=== PATIENT | female | born 1995 ===

== ENCOUNTER 2017-06-02 22:06 | Emergency (ER) | payer SELFPAY ==
--- NOTE | 2017-06-02 22:14 | ER Report ---
History and Physical Time Seen By MD: 22:13 HPI/ROS CHIEF COMPLAINT: URI for 4 days of severe cough HISTORY OF PRESENT ILLNESS: 21-year-old female at 22 weeks presents with URI 5 for 4 days. The cough began increasingly worse. She's had purulent sinus drainage. Patient denies fever or chills. Patient denies nausea or vomiting. Patient's been unable to sleep due to severe cough. Patient has a mild history of asthma. She's had previous inhaler use. REVIEW OF SYSTEMS: Respiratory: As above Cardiovascular: No chest pain, no palpitations. Gastrointestinal: No vomiting, no abdominal pain. Musculoskeletal: No back pain. Allergies: Coded Allergies: Penicillins (Verified Allergy, Unknown, "high fever and bad rash", 06/02/17 ) Home Meds Active Scripts Oxycodone Hcl/Acetaminophen (PERCOCET 5-325 MG TABLET) 1 Each Tablet, 1 EACH PO Q4-6H Y for pain or cough suppression, #8 Prov:YOANNA MERLOS DO 06/02/17 Cefuroxime Axetil (CEFUROXIME) 500 Mg Tablet, 500 MG PO BID for infection, #14 TAB Prov:GAURANGYOANNA Spencer DO 06/02/17 Reviewed Nurses Notes: Yes Old Medical Records Reviewed: Yes Constitutional Vital Sign - Last 24 Hours 06/02/17 06/02/17 06/02/17 06/02/17 22:18 22:19 22:21 22:36 Temp 99.0 Pulse 89 91 87 Resp 18 B/P (MAP) 110/71 (84) 110/71 Pulse Ox 99 95 95 O2 Delivery Room Air 06/02/17 06/02/17 06/02/17 06/02/17 22:41 22:56 22:56 22:56 Pulse 88 87 81 Resp 12 Pulse Ox 94 95 98 O2 Delivery Room Air 06/02/17 06/02/17 06/02/17 22:57 22:57 23:11 Pulse 79 95 Pulse Ox 98 96 O2 Delivery Room Air Physical Exam General Appearance: The patient is alert, has no immediate need for airway protection and no current signs of toxicity. Vital signs stable, afebrile, pulse ox normal HEENT: Pupils equal and round no injection. TMs normal, oropharynx with redness or exudate Respiratory: Chest is non tender, lungs are clear to auscultation. Mild expiratory wheezing, no Rales Cardiac: regular rate and rhythm Gastrointestinal: Abdomen is soft and non tender, no masses, bowel sounds normal. Musculoskeletal: Neck: Neck is supple and non tender. Extremities have full range of motion and are non tender. Skin: No rashes or lesions. DIFFERENTIAL DIAGNOSIS: After history and physical exam differential diagnosis was considered for bronchitis, pneumonia, sinusitis, otitis media, pharyngitis, viral syndrome Medical Decision Making ED Course/Re-evaluation ED Course Patient was admitted to an examination room. H&P was done. The differential diagnoses was considered. On clinical examination. Patient has purulent postnasal drip. Patient be covered with Ceftin for infection. Patient was treated with an albuterol nebulizer. Patient was dispensed a pro-air inhaler. She'll be given a limited supply of oxycodone for temporary cough suppression. She is advised to use them sparingly with her . Patient advised to use Robitussin-DM. Patient advised to follow-up with primary care if unimproved in 3-5 days. Decision to Disposition Date: Jun 02, 2017 Decision to Disposition Time: 22:59 Depart Departure Latest Vital Signs Vital Signs Date Time Temp Pulse Resp B/P (MAP) Pulse Ox O2 Delivery O2 Flow Rate FiO2 06/02/17 23:11 95 96 06/02/17 22:57 Room Air 06/02/17 22:56 12 06/02/17 22:19 99.0 110/71 Impression: Primary Impression: Upper respiratory infection Additional Impressions: Sinusitis Persistent cough Condition: Improved Disposition: HOME OR SELF-CARE New Scripts Oxycodone Hcl/Acetaminophen (PERCOCET 5-325 MG TABLET) 1 Each Tablet 1 EACH PO Q4-6H Y for pain or cough suppression, #8 Prov: YOANNA MERLOS DO 06/02/17 Cefuroxime Axetil (CEFUROXIME) 500 Mg Tablet 500 MG PO BID for infection, #14 TAB Prov: YOANNA MERLOS DO 06/02/17 Patient Instructions: Sinusitis (ED), Upper Respiratory Infection (ED) Additional Instructions: You can use Robitussin-DM to suppress the cough You can take Tylenol for pain or fever reduction Follow-up with your primary care if unimproved in 3-5 days Problem Qualifiers Primary Impression: Upper respiratory infection URI type: unspecified URI Qualified Codes: J06.9 - Acute upper respiratory infection, unspecified Additional Impressions: Sinusitis Sinusitis location: unspecified location Chronicity: acute Recurrence: not specified as recurrent Qualified Codes: J01.90 - Acute sinusitis, unspecified YOANNA MERLOS DO Jun 02, 2017 22:14
[2017-06-02 22:19] VITALS: BP 110/71
[2017-06-02] MEDS ORDERED: ALBUTEROL 2.5 MG/3 ML NEB NEB ONE (22:50)
[2017-06-02] MEDS ORDERED: ALBUTEROL SULFATE 90 MCG/ACT 8.5 GM HNH INH PRN (22:50)
[2017-06-02] MEDS ORDERED: CEFUROXIME AXETIL 250 MG TAB PO ONE (23:00)
[2017-06-02] MEDS ORDERED: oxyCODONE/ACETAMIN 5/325MG TH 2 TAB/BOTTLE PO ONE (23:00)
[2017-06-02] MEDS ORDERED: OXYC-865 PO (23:01)
[2017-06-02] MEDS ORDERED: CEFU500T10 PO (23:01)
== END 2017-06-02 23:25 | disposition home or self-care (01) ==
LOC: EDSTATUS 22:08 → OB 22:10 → UNDOADMIN 22:10 → EDSTATUS 22:12 → ER 22:14
DX: O26.892 Other specified pregnancy related conditions, second trimester (principal); J06.9 Acute upper respiratory infection, unspecified; J01.90 Acute sinusitis, unspecified
CPT/HCPCS: 94640; 99283; J7613

== ENCOUNTER 2017-06-13 12:12 | Inpatient (IN) | payer SELFPAY ==
[~2017-06-13] VITALS: Ht 167.6 cm; Wt 83.5 kg
[~2017-06-13 12:12] MED LIST changes: -PREN-127 PO
[2017-06-13 12:30] VITALS: BP 105/60; Ht 167.6 cm; Wt 83.5 kg
[2017-06-13] MEDS ORDERED: ENOXAPARIN 100 MG/ML SYR SC SCH (12:55)
[2017-06-13] MEDS ORDERED: ACETAMINOPHEN 325 MG TAB PO PRN (12:55)
[2017-06-13] MEDS ORDERED: ONDANSETRON 4 MG/2 ML VIAL IV PRN (12:55)
[2017-06-13] MEDS ORDERED: SIMETHICONE 80 MG CHEW CHEW PRN (12:55)
[2017-06-13] MEDS ORDERED: PROMETHAZINE 25 MG/ML 1 ML AMP IVP PRN (12:55)
[2017-06-13] MEDS ORDERED: ZOLPIDEM TARTRATE 10 MG TAB PO PRN (12:55)
[2017-06-13 14:09] LABS: PLATELET COUNT, AUTOMATED 150 K/uL (150-450)
--- NOTE | 2017-06-13 18:09 | History & Physical ---
History of Present Illness Age of Patient: 21 : 4 Para or TPAL: 2011 EDC per LMP: Oct 07, 2017 EDC per U/S: Oct 08, 2017 Estimated Gestational Age: 23.5 Chief Complaint Pain in her left leg, swelling History of Present Illness Pt is a 21 y/o @ 23-5/7 weeks gestation who presented to clinic this morning with a chief complaint of a painful left leg that is starting to turn different colors. Reports that the leg feels like it goes numb sometimes. Reports symptoms started about two days ago. No chest pain or shortness of breath. Pt does report a history of a PE in 2013 with an unknown etiology. Pt does report that they thought it may be hormonal but they never said one way or another. She reports she was taking control at the time when she got the clot. Pt reports that she had taken control pills in the past prior to this episode in 2013. Pt had no issues in her prior . Also reports a history of her mother having a stroke from a dvt. History Patient's Blood Type: B Positive Rubella Status: Immune Group B Strep Screen: Negative Obstetrical History: . X 2 with one Spontaneous AB Past Medical History: History of a PD in 2013. Allergic PCN (rash) History of Pyelonephritis History of Depression was taking Lexapro but stopped Allergies: Coded Allergies: Penicillins (Verified Allergy, Unknown, "high fever and bad rash", 06/02/17 ) Social History: Denies use of Alcohol and recreational drugs. Occassional use of tobacco during this Med Rec Home Meds Active Scripts Oxycodone Hcl/Acetaminophen (PERCOCET 5-325 MG TABLET) 1 Each Tablet, 1 EACH PO Q4-6H Y for pain or cough suppression, #8 Prov:YOANNA MERLOS DO 06/02/17 Cefuroxime Axetil (CEFUROXIME) 500 Mg Tablet, 500 MG PO BID for infection, #14 TAB Prov:YOANNA MERLOS DO 06/02/17 Review of Systems All Systems Reviewed/Normal: Yes, Except as Noted Constitutional: No Fever, No Weight Loss, No Weight Gain, No Chills, No Night Sweats, No Other Neurological: No Syncope, No Confusion, No Weakness, No Dizziness, No Slurred Speech, No Other Eyes: No Vision Change, No Loss of Vision, No Photophobia, No Other ENT: No Hearing Loss, No Sinus Congestion, No Sore Throat, No Ear Ache, No Tinnitus, No Other Cardiovascular: No Chest Pain, No Palpitations, No Orthostatic Hypotension, No Other Respiratory: No Shortness of Breath, No Cough, No Wheezing, No Other Gastrointestinal: No Nausea, No Vomiting, No Diarrhea, No Dysphagia, No Constipation, No Early Satiety, No Hematemesis, No Hematochezia, No Melena, No Abdominal Pain, No Other Musculoskeletal: Other (Left lower extremity swollen as described in H&P.) Psychiatric: No Depression, No Anxiety, No Other Exam General Exam Vital Signs Vital Signs Date Time Temp Pulse Resp B/P (MAP) Pulse Ox O2 Delivery O2 Flow Rate FiO2 06/13/17 12:30 98.0 88 16 105/60 (75) 97 Room Air General Apperance: Alert/Awake/No Acute Distress Neuro: No Gross deficits Eyes: Normal Extraocular Movement & Vison, PERRLA ENT: Normal Cardiovascular: Regular Rate and Rhythm Respiratory: No Respiratory Distress, Clear to Auscultation Abdomen: Soft, Non-Tender, Non-Distended : Normal Musculoskeletal: No Weakness/Pain Extremities: No Cyanosis,Clubbing or Edema Integumentary: Skin Intact without Lesions or Rash Psychological: Alert & Oriented X3, Appropriate Mood & Affect Fetus Feeling Movement?: Yes Heart Tones: 150 Medical Decision Making Data Points Result Diagram: 06/13/17 1357 Imaging Ultrasound/Imaging Date of [facility]: 06/13/2017 Exam type: VENOUS DOPP LOW LEFT EXTREMITY History: Left leg pain and swelling Comparison: None. Findings: There is extensive thrombus identified in the left inferior vena cava, left iliac vein, left common femoral vein, left superficial femoral vein. The left popliteal vein posterior tibial vein peroneal vein and anterior tibial veins were compressible and demonstrated augmentation IMPRESSION: 1. Extensive DVT from the IVC through the distal left superficial femoral vein. Findings were discussed by telephone with Dr. Grullon at 11:55 AM on 06/13/2017 Pre-Admit Course Medical Record Review: Yes VTE Prophylasis: Adult Deep Vein Thrombosis/Pulmonary: No Mechanical Contraindications: Current DVT Assessment and Plan MACHINERY REPAIR MAINTENANCE SUPERVISOR Assessment: Stable Problems: (1) Deep vein thrombosis (DVT) affecting in second trimester Assessment & Plan: DVT in left lower extremity from the femoral all the way to the inferior vena cava. Discussed patient care with Dr. Jose Martin Toth of [facility] medical group in [place] whom recommended inpatient management. Weight based Lovenox therapy BID. 84 mg/BID. Inherited Thrombophilia workup started. Once patient is comfortable with giving herself injections and is stable on Lovenox will consider anti Xa levels and possible adjustment of dosage. Will have social worker assistant consult tomorrow to help with getting home Lovenox paid for. heart tones daily or more per patient request. Continuous pulse oximetry while in house. No scd's. If patient decompensates will need help from Hospitalist. Could consider discussing if Sky filter would be a viable option for this patient. (2) Deep vein thrombosis (DVT) of left lower extremity Problem Qualifiers (1) Deep vein thrombosis (DVT) of left lower extremity: Affected thrombotic vein of extremity: iliac JOSEPH GRULLON DO Jun 13, 2017 18:09
[2017-06-13 19:30] VITALS: BP 118/63
[2017-06-13] MEDS ORDERED: PREN-127 PO (19:40)
[2017-06-13] MEDS ORDERED: PROMETHAZINE HCL 25 MG TAB PO PRN (21:00)
[2017-06-13] MEDS: ONDANSETRON 4 MG ODT TABDP SL PRN (21:18)
[2017-06-13] MEDS: FAMOTIDINE 20 MG TAB PO SCH (21:18)
[2017-06-13] MEDS: DOCUSATE CALCIUM 240 MG CAP PO SCH (21:18)
[2017-06-13] MEDS ORDERED: ENOXAPARIN 100 MG/ML SYR SC ONE (23:00)
[2017-06-13 23:01] VITALS: BP 112/60
[2017-06-14 04:43] VITALS: BP 97/61
[2017-06-14] MEDS: ONDANSETRON 4 MG ODT TABDP SL PRN ×3 (06:03→19:44)
--- NOTE | 2017-06-14 07:40 | OB/GYN Progress Note ---
OB Subjective Progress Notes Subjective No SOB, no chest pain, pain in left side today, leg less painful today GI: NEG Nausea, NEG Vomiting : Voiding Well Pain: Mild Neurological: No Headache OB Objective Physical Exam Vital Signs Date Time Temp Pulse Resp B/P (MAP) Pulse Ox O2 Delivery O2 Flow Rate FiO2 06/14/17 04:43 98.2 79 12 97/61 (73) 95 Room Air General Appearance: Alert/Awake/No Acute Distress Neurological: No Gross deficits Eyes: Normal Extraocular Movement & Vison, PERRLA Cardiovascular: Regular Rate and Rhythm Respiratory: No Respiratory Distress, Clear to Auscultation Abdomen: Soft, Non-Tender, Non-Distended Extremities: No Cyanosis,Clubbing or Edema Integumentary: Skin Intact without Lesions or Rash Psychological: Alert & Oriented X3, Appropriate Mood & Affect Result Diagram: 06/13/17 4357 Assessment and Plan Problems: (1) Deep vein thrombosis (DVT) affecting in second trimester Assessment & Plan: patient on levenox, pain in left side will consult hospitalist to follow along (2) Deep vein thrombosis (DVT) of left lower extremity Problem Qualifiers (1) Deep vein thrombosis (DVT) of left lower extremity: Affected thrombotic vein of extremity: iliac LILLY LEWIS MD Jun 14, 2017 07:40
[2017-06-14 09:00] VITALS: BP 94/56
[2017-06-14] MEDS ORDERED: INFLUENZA VIRUS VAC 0.5 ML SYR IM ONLY ONE (09:00)
[2017-06-14] MEDS: DOCUSATE CALCIUM 240 MG CAP PO SCH ×2 (09:03→21:44)
[2017-06-14] MEDS: FAMOTIDINE 20 MG TAB PO SCH ×2 (09:03→21:44)
[2017-06-14] MEDS: ENOXAPARIN 100 MG/ML SYR SC SCH ×2 (09:04→21:44)
[2017-06-14 13:22] VITALS: BP 116/48
--- NOTE | 2017-06-14 15:29 | Hospitalist Consultation ---
History of Present Illness Requesting Physician Wilver Reason for Consult DVT involving the IVC. History of Present Illness 21yo female with a h/o PE who is 23 weeks who was admitted for a DVT. She developed left groin pain 3 days prior to admission. The pain worsened and she developed some leg numbness. She was found to have a DVT extending from the IVC down to the superficial femoral vein on the left. Today, she reported some bilateral flank discomfort. She had a PE on the right in August of 2013. She was on control at the time. She was placed on warfarin until a previous . She hasn't had any more clotting issues. Her mother had a DVT recently and potentially a stroke related to it. The patient denies tobacco use. Currently, she is comfortable when her leg is up, but has pain and a purplish leg when she stands up. She is limited for how long she can stand secondary to the leg discomfort. No cp/sob. History Problems: (1) History of pulmonary embolism Status: Acute (2) History of tonsillectomy Home Meds Active Scripts Oxycodone Hcl/Acetaminophen (PERCOCET 5-325 MG TABLET) 1 Each Tablet, 1 EACH PO Q4-6H Y for pain or cough suppression, #8 Prov:YOANNA MERLOS DO 06/02/17 Reported Medications Vits W-Ca,Fe,Fa(<1MG) ( VITAMINS) 1 Each Tablet, 1 EACH PO DAILY, TAB 06/13/17 Discontinued Scripts Cefuroxime Axetil (CEFUROXIME) 500 Mg Tablet, 500 MG PO BID for infection, #14 TAB Prov:YOANNA MERLOS DO 06/02/17 Allergies: Coded Allergies: Penicillins (Verified Allergy, Unknown, "high fever and bad rash", 06/02/17 ) latex (Unverified Allergy, Unknown, 06/13/17) Other Social/Family Hx She denied tobacco use to me. Hx Smoking: Yes Smoking Status: Current: Every Day Smoker, Light Tobacco Smoker Hx Alcohol Use: No Review of Systems All Systems Reviewed/Normal: Yes, Except as Noted Exam Vital Signs Vital Signs Date Time Temp Pulse Resp B/P (MAP) Pulse Ox O2 Delivery O2 Flow Rate FiO2 06/14/17 13:22 98.3 94 18 116/48 (70) 92 Room Air General Appearance: Alert, Awake, No Acute Distress Cardiovascular: Regular Rate and Rhythm Respiratory: Clear to Auscultation GI: Abd Soft and Non-Tender : No CVA Tenderness Extremities: Edema (left leg is diffusely more swollen to the toes compared to the right, but mildly so. Normal color. No pain with palpation. Feet are warm. <2 sec cap refill bilaterally. Bounding DP pulses bilaterally.) Medical Decision Making Data Points Result Diagram: 06/13/17 1357 EKG / Imaging Imaging Venogram - 1. Extensive DVT from the IVC through the distal left superficial femoral vein. Assessment and Plan Problems: (1) History of pulmonary embolism Status: Acute Assessment & Plan: She presented with left groin and leg pain and was found to have an extensive DVT from the IVC to the superficial femoral vein. She was started on Lovenox. She has good perfusion and no signs of ischemia. She does get significant discomfort, purplish color and swelling when standing. I spoke with a Vascular Surgeon from [facility] and at [place] and they both did not recommend thrombectomy. She cannot have thrombolysis secondary to the . They agreed with Lovenox and recommended compression stocking therapy. The patient has a hypercoagulable work up pending. She will need to be on Lovenox while . I would recommend following up with a Bleacher Operator in a couple weeks to guide further therapy. BMP/CBC tomorrow. Copies to: LILLY LEWIS MD Venous Thromboembolism Antithrombotics Is Pt On Any Antithrombotics?: Yes JOSE J CEBALLOS MD Jun 14, 2017 15:29
[2017-06-14 20:39] VITALS: BP 95/51
[2017-06-14 22:15] LABS: PLATELET COUNT, AUTOMATED 155 K/uL (150-450)
--- NOTE | 2017-06-15 00:39 | RADIOLOGY IMAGING REPORT ---
FACILITY: [facility] - [place] PATIENT NAME: Jyotsna Mosqueda : 1995 MR: [id number] V: [id number] EXAM DATE: ORDERING PHYSICIAN: LILLY LEWIS TECHNOLOGIST: Location: [facility] Patient: Jyotsna Mosqueda : 1995 Visit/Account:[id number] Date of Sevice: 06/14/2017 KIDNEYS HISTORY: Right flank pain since this morning. 23-24 weeks . COMPARISON: None. FINDINGS: Kidneys Right: 11.5 x 5.4 x 6.7 cm. Normal parenchymal thickness and echogenicity. Trace hydronephrosis. No s hadowing calculus. No perinephric fluid collection. Resistive index is normal, measuring 0.6 cm. Left: 13.0 x 4.8 x 4.5 cm. Normal parenchymal thickness and echogenicity. No hydronephrosis or visibl e shadowing calculus. Resistive index is normal, measuring 0.7 cm. No perinephric fluid collection. Bladder: Normal. Both ureteral jets were identified. Bladder volume is 108 mL. Post void bladder volu me is 10 mL. Abdomina aorta and IVC: Patent by Doppler ultrasound. Additional findings: There is an intrauterine gestation in breech presentation. On image 44, there is a vessel at the internal cervical os. IMPRESSION: 1. Trace right hydronephrosis, likely due to the gravid uterus. No visible obstructing calculus. Both ureteral jets were identified. 2. Normal left kidney. 3. 10 mL postvoid bladder residual. 4. There is a vessel at the internal cervical os. Close attention to this is recommended on dedicated follow-up OB ultrasound to ensure no vasa previa. Report Dictated By: Cahro Deshpande at 06/15/2017 12:26 AM Report E-Signed By: Charo Deshpande at 06/15/2017 12:34 AM WSN:[id number]
[2017-06-15] MEDS: ONDANSETRON 4 MG ODT TABDP SL PRN ×5 (00:54→21:53)
[2017-06-15 01:01] VITALS: BP 96/51
[2017-06-15 05:53] VITALS: BP 91/53
--- NOTE | 2017-06-15 06:53 | Hospitalist Progress Note ---
Subjective Progress Notes Subjective The patient had worsening left groin pain and also left flank pain. Both are worse with movement. The flank pain seems to have improved significantly, but still having the groin pain. No reported cp/sob. Physical Exam Vital Signs Date Time Temp Pulse Resp B/P (MAP) Pulse Ox O2 Delivery O2 Flow Rate FiO2 06/15/17 05:53 98.3 72 16 91/53 (66) 94 Room Air General Appearance: Alert, Awake, No Acute Distress GI: Soft and Non-Tender : No CVA Tenderness Extremities: Warm, Perfused, Other (Left leg has the compression stocking on with minimal swelling compared to the right. It is non-tender. No pain with palpation of the groin on the left) Result Diagram: 06/14/171 Assessment and Plan Problems: (1) History of pulmonary embolism Status: Acute Assessment & Plan: She presented with left groin and leg pain and was found to have an extensive DVT from the IVC to the superficial femoral vein. She was started on Lovenox. She has good perfusion and no signs of ischemia. She does get significant discomfort, purplish color and swelling when standing. I spoke with a Vascular Surgeon from [facility] and at [place] and they both did not recommend thrombectomy. She cannot have thrombolysis secondary to the . They agreed with Lovenox and recommended compression stocking therapy. The patient has a hypercoagulable work up pending. She will need to be on Lovenox while . I would recommend following up with a Military Source Operations Officer in a couple weeks to guide further therapy. Overnight she developed some left flank pain, but also worsening groin pain. No WBC was wnl, and renal US was wnl. A repeat Doppler of the LLE including the IVC might be helpful to look for progression of the clot. BMP/CBC pending. JOSE J CEBALLOS MD Jun 15, 2017 06:53
[2017-06-15 07:15] VITALS: BP 95/56
--- NOTE | 2017-06-15 07:49 | OB/GYN Progress Note ---
OB Subjective Progress Notes Subjective no chest pain or shortness of breath. still with left groin pain, left flank pain better this am GI: POS Nausea, POS Flatus, NEG Vomiting : Voiding Well OB Objective Physical Exam Vital Signs Date Time Temp Pulse Resp B/P (MAP) Pulse Ox O2 Delivery O2 Flow Rate FiO2 06/15/17 05:53 98.3 72 16 91/53 (66) 94 Room Air General Appearance: Alert/Awake/No Acute Distress Neurological: No Gross deficits Eyes: Normal Extraocular Movement & Vison, PERRLA Cardiovascular: Regular Rate and Rhythm Respiratory: Clear to Auscultation Abdomen: Soft, Non-Tender, Non-Distended : No CVA Tenderness Extremities: No Cyanosis,Clubbing or Edema, No Edema Integumentary: Skin Intact without Lesions or Rash Psychological: Alert & Oriented X3, Appropriate Mood & Affect Result Diagram: 06/14/17 4500 Assessment and Plan Problems: (1) Deep vein thrombosis (DVT) affecting in second trimester (2) Deep vein thrombosis (DVT) of left lower extremity Assessment & Plan: will get doppler to see if clot extended. will continue lovenox as ordered Problem Qualifiers (1) Deep vein thrombosis (DVT) of left lower extremity: Affected thrombotic vein of extremity: iliac LILLY LEWIS MD Jun 15, 2017 07:49
[2017-06-15 07:55] LABS: PLATELET COUNT, AUTOMATED 158 K/uL (150-450)
[2017-06-15] MEDS: FAMOTIDINE 20 MG TAB PO SCH ×2 (09:36→20:20)
[2017-06-15] MEDS: DOCUSATE CALCIUM 240 MG CAP PO SCH ×2 (09:36→20:20)
[2017-06-15] MEDS: ENOXAPARIN 100 MG/ML SYR SC SCH ×2 (09:36→20:20)
--- NOTE | 2017-06-15 11:30 | RADIOLOGY IMAGING REPORT ---
[place] [facility] [place] NAME: Jyotsna Mosqueda : 1995 MR: [id number] V: [id number] EXAM DATE: ORDERING PHYSICIAN: LILLY LEWIS TECHNOLOGIST: Location: [facility] Patient: Jyotsna Mosqueda : 1995 Visit/Account:[id number] Date of Sevice: 06/15/2017 EXAMINATION: Left LOWER EXTREMITY VENOUS DOPPLER ULTRASOUND DATE: 06/15/2017 11:17 AM CLINICAL INFORMATION: US REASON FOR STUDY: worsening symptoms from dvt TECHNIQUE: Grayscale, color Doppler, and spectral Doppler ultrasound was performed of the lower extre mity veins to evaluate for deep venous thrombosis. COMPARISON: Left lower extremity ultrasound of June 13, 2017 FINDINGS: As on the comparison, thrombus is demonstrated within the distal IVC and this extends into the common femoral vein and femoral vein. There is some flow within the distal IVC. Thrombus is occlu sive in the common femoral vein and extends just distal to the greater saphenous vein confluence. The re is flow in the femoral vein distally as well as the popliteal vein. Posterior tibial and peroneal veins are patent. The distribution clot appears grossly similar to the prior study. The deep veins of the right lower extremity are patent including the common iliac vein. IMPRESSION: Persistent extensive thrombus from the distal IVC to the distal femoral vein on the left. The distrib ution clot appears grossly similar to the prior ultrasound of June 13, 2017. Report Dictated By: Whit Poe MD at 06/15/2017 11:17 AM Report E-Signed By: Whit Poe MD at 06/15/2017 11:25 AM WSN:[id number]
[2017-06-15 11:37] VITALS: BP 96/56
[2017-06-15 16:50] VITALS: BP 99/54
[2017-06-15 20:25] VITALS: BP 113/64
[2017-06-16 04:07] VITALS: BP 93/57
[2017-06-16] MEDS: ONDANSETRON 4 MG ODT TABDP SL PRN ×4 (05:56→20:47)
[2017-06-16] MEDS ORDERED: MAGNESIUM HYDROXIDE* 30ML UDCP PO PRN (08:20)
[2017-06-16 09:06] VITALS: BP 92/55
[2017-06-16] MEDS: ENOXAPARIN 100 MG/ML SYR SC SCH ×2 (09:12→20:48)
[2017-06-16] MEDS: FAMOTIDINE 20 MG TAB PO SCH ×2 (09:12→20:47)
[2017-06-16] MEDS: DOCUSATE CALCIUM 240 MG CAP PO SCH ×2 (09:12→20:47)
--- NOTE | 2017-06-16 10:04 | OB/GYN Progress Note ---
OB Subjective Progress Notes Subjective Pain controlled, no shortness of breath, no chest pain. GI: POS Flatus, NEG Nausea, NEG Vomiting : Voiding Well Pain: Mild OB Objective Physical Exam Vital Signs Date Time Temp Pulse Resp B/P (MAP) Pulse Ox O2 Delivery O2 Flow Rate FiO2 06/16/17 09:06 98.3 78 16 92/55 (67) 94 Room Air General Appearance: Alert/Awake/No Acute Distress Neurological: No Gross deficits Eyes: Normal Extraocular Movement & Vison, PERRLA Cardiovascular: Regular Rate and Rhythm Respiratory: Clear to Auscultation Abdomen: Soft, Non-Tender, Non-Distended : No CVA Tenderness Extremities: No Cyanosis,Clubbing or Edema, No Edema Integumentary: Skin Intact without Lesions or Rash Psychological: Alert & Oriented X3, Appropriate Mood & Affect Result Diagram: 06/15/17 0707 06/15/17 0707 Assessment and Plan Problems: (1) Deep vein thrombosis (DVT) affecting in second trimester (2) Deep vein thrombosis (DVT) of left lower extremity Assessment & Plan: Pain controlled, no shortness of breath, no chest pain. Will get heart tones q shift. Likely discharge in am after social work consult Problem Qualifiers (1) Deep vein thrombosis (DVT) of left lower extremity: Affected thrombotic vein of extremity: LILLY Sahu MD Jun 16, 2017 10:04
--- NOTE | 2017-06-16 11:02 | Hospitalist Progress Note ---
Subjective Progress Notes Subjective This patient was admitted for a DVT of the lower extremity. Physical Exam Vital Signs Date Time Temp Pulse Resp B/P (MAP) Pulse Ox O2 Delivery O2 Flow Rate FiO2 06/16/17 09:06 98.3 78 16 92/55 (67) 94 Room Air Cardiovascular: Regular Rate and Rhythm Respiratory: Clear to Auscultation Result Diagram: 06/15/17 0707 06/15/17 0707 Assessment and Plan Problems: (1) History of pulmonary embolism Status: Acute Assessment & Plan: She presented with left groin and leg pain and was found to have an extensive DVT from the IVC to the superficial femoral vein. She was started on Lovenox. She has good perfusion and no signs of ischemia. She does get significant discomfort, purplish color and swelling when standing. Dr. Casas did speak with a Vascular Surgeon from [facility] and at [facility] and they both did not recommend thrombectomy. She cannot have thrombolysis secondary to the . They agreed with Lovenox and recommended compression stocking therapy. The patient has a hypercoagulable work up pending. She will need to be on Lovenox while . We would recommend following up with a [employer] in a couple weeks to guide further therapy. LILLY HARDY DO Jun 16, 2017 11:02
[2017-06-16 12:18] VITALS: BP 93/53
[2017-06-16 16:13] VITALS: BP 101/59
[2017-06-16 19:41] VITALS: BP 98/55
[2017-06-17] MEDS ORDERED: ONDANSETRON 4 MG ODT TABDP SL SCH
[2017-06-17 03:10] VITALS: BP 98/55
[2017-06-17] MEDS: ONDANSETRON 4 MG ODT TABDP SL PRN ×2 (03:13→09:17)
[2017-06-17 09:01] VITALS: BP 93/53
[2017-06-17] MEDS: DOCUSATE CALCIUM 240 MG CAP PO SCH (09:06)
[2017-06-17] MEDS: FAMOTIDINE 20 MG TAB PO SCH (09:06)
[2017-06-17] MEDS: ENOXAPARIN 100 MG/ML SYR SC SCH (09:07)
[2017-06-17 13:00] VITALS: BP 97/61
[2017-06-17] MEDS ORDERED: ONDA4TAB9 SL (15:28)
[2017-06-17] MEDS ORDERED: ENOX100D5 SC (15:28)
[2017-06-17] MEDS ORDERED: PER PO (15:28)
--- NOTE | 2017-06-17 15:29 | OB/GYN Discharge Summary ---
Discharge Summary Reason for Hosp/Final Diag: (1) Deep vein thrombosis (DVT) affecting in second trimester (2) Deep vein thrombosis (DVT) of left lower extremity Hospital Course & Plan: Pain controlled, no shortness of breath, no chest pain. Will get heart tones q shift. Likely discharge in am after social work consult [place] Vital Signs Vital Signs Date Time Temp Pulse Resp B/P (MAP) Pulse Ox O2 Delivery O2 Flow Rate FiO2 06/17/17 13:00 98.3 66 16 97/61 (73) 93 Room Air Weight (Pounds): 184 Result Diagram: 06/15/1770606/15/17706 Condition: Improved Discharge: Home, Self Half-Way Meds Active Scripts Oxycodone/Acetaminophen (OXYCODONE/ACETAMINOPHEN 5MG/325 MG) 5 Mg/325 Mg Tab, 1- 2 TAB PO Q4H Y for PAIN, #14 TAB 0 Refills Prov:UVALDO DAMIAN MD 06/17/17 Oxycodone Hcl/Acetaminophen (PERCOCET 5-325 MG TABLET) 1 Each Tablet, 1 EACH PO Q4-6H Y for pain or cough suppression, #8 Prov:YOANNA MERLOS DO 06/02/17 Reported Medications Vits W-Ca,Fe,Fa(<1MG) ( VITAMINS) 1 Each Tablet, 1 EACH PO DAILY, TAB 06/13/17 Discontinued Scripts Cefuroxime Axetil (CEFUROXIME) 500 Mg Tablet, 500 MG PO BID for infection, #14 TAB Prov:YOANNA MERLOS DO 06/02/17 Follow up Referrals: [employer] [facility] - In One Week @ [facility] with Uvaldo Damian Md Follow up with: Dr. Damian [phone] Follow up in: 5-7 days Discharge Diet: As Tolerates Discharge Activity: As Tolerates, No Heavy Lifting x 6 wks, No Heavy Lifting > 10lb Special Instructions: Copies to: UVALDO DAMIAN MD Problem Qualifiers (1) Deep vein thrombosis (DVT) of left lower extremity: Affected thrombotic vein of extremity: iliac UVALDO DAMIAN MD Jun 17, 2017 15:29
[2017-06-17] MEDS ORDERED: ONDANSETRON 4 MG ODT TABDP SL PRN (16:20)
[2017-06-17] MEDS ORDERED: ENOXAPARIN 100 MG/ML SYR SC SCH ×2 (21:00)
== END 2017-06-17 17:00 | disposition home or self-care (01) | DRG 782 ==
LOC: OB 12:12 → OBSVTOIN 12:12
PROVIDERS: ADMIT Student in an Organized Health Care Education/Training Program; ATTEND Student in an Organized Health Care Education/Training Program
DX: O22.32 Deep phlebothrombosis in pregnancy, second trimester (principal); I82.220 Acute embolism and thrombosis of inferior vena cava; I82.412 Acute embolism and thrombosis of left femoral vein; I82.492 Acute embolism and thrombosis of other specified deep vein of left lower extremity; Z3A.23 23 weeks gestation of pregnancy; Z88.0 Allergy status to penicillin; Z86.711 Personal history of pulmonary embolism; Z91.040 Latex allergy status
CPT/HCPCS: 36415; 76705; 81001; 81240; 81241; 82310; 82374; 82435; 82565; 82947; 84132; 84295; 84520; 85025; 85300; 85520; 85610; 85613; 85730; 86146; 86147; J1650; S0119

== ENCOUNTER → 2017-06-13 | Outpatient (CLI) | payer SELFPAY ==
[~2017-06-13] MED LIST: CEFU500T10 PO; OXYC-865 PO; PREN-127 PO
--- NOTE | 2017-06-13 13:03 | RADIOLOGY IMAGING REPORT ---
FACILITY: [facility] - [place] PATIENT NAME: Jyotsna Mosqueda : 1995 MR: [id number] V: [id number] EXAM DATE: ORDERING PHYSICIAN: JOSEPH EDWARD TECHNOLOGIST: Location: [facility] - [place] Patient: Jyotsna Mosqueda : 1995 Visit/Account:[id number] Date of Sevice: 06/13/2017 Exam type: VENOUS DOPP LOW LEFT EXTREMITY History: Left leg pain and swelling Comparison: None. Findings: There is extensive thrombus identified in the left inferior vena cava, left iliac vein, left common f emoral vein, left superficial femoral vein. The left popliteal vein posterior tibial vein peroneal v ein and anterior tibial veins were compressible and demonstrated augmentation IMPRESSION: 1. Extensive DVT from the IVC through the distal left superficial femoral vein. Findings were discussed by telephone with Dr. Edward at 11:55 AM on 06/13/2017 Report Dictated By: Neema Armenta MD at 06/13/2017 12:56 PM Report E-Signed By: Neema Armenta MD at 06/13/2017 12:59 PM WSN:[id number]
== END ==
LOC: US 10:51
PROVIDERS: ATTEND Student in an Organized Health Care Education/Training Program
DX: I82.422 Acute embolism and thrombosis of left iliac vein (principal); I82.412 Acute embolism and thrombosis of left femoral vein; I82.492 Acute embolism and thrombosis of other specified deep vein of left lower extremity